=== PATIENT | female | born 1980 | race African-American/Black ===

== ENCOUNTER 2023-08-04 08:29 | Emergency (ER) | payer MEDICAID, OTHER ==
[~2023-08-04] VITALS: Ht 162.6 cm; Wt 97.0 kg
[2023-08-04 08:34] VITALS: BP 115/85; PULSE 82; RESP 16; TEMP 98.7; O2SAT 97
[2023-08-04 10:19] LABS: HEMATOCRIT. 38.1 % (36.0-48.0); HEMOGLOBIN. 12.4 g/dL (12.0-16.0); MEAN CORPUSCULAR HEMOGLOBIN 25.6 pg (28.0-32.0); MEAN CORPUSCULAR HGB CONC 32.6 g/dL (31.0-37.0); MEAN CORPUSCULAR VOLUME 78.7 fL (81.0-99.0); PLATELET 257 x1000/uL (130-400); RED BLOOD CELL COUNT 4.84 mill/uL (4.2-5.4); RED CELL DISTRIBUTION WIDTH 14.3 % (11.6-14.6); WHITE BLOOD COUNT 10.4 x1000/uL (4.5-11.0)
[2023-08-04 10:24] LABS: DIFFERENTIAL COMMENT 1
[2023-08-04 10:25] LABS: HCG SCREEN NEGATIVE
[2023-08-04 10:30] LABS: ALANINE AMINOTRANSFERASE 43 IU/L (10-49); ALBUMIN 4.2 g/dL (3.2-4.8); ASPARTATE AMINOTRANSFERASE 80 IU/L (<34); BILIRUBIN TOTAL 0.6 mg/dL (0.1-1.0); CALCIUM 8.8 mg/dL (8.7-10.4); CARBON DIOXIDE 28 mEq/L (21-32); CHLORIDE 108 mEq/L (98-107); CREATININE 1.1 mg/dL (0.6-1.0); GLUCOSE 103 mg/dL (70-105); POTASSIUM 4.1 mEq/L (3.5-5.1); PROTEIN TOTAL 7.1 g/dL (6.0-8.3); SODIUM 136 mEq/L (136-145); UREA NITROGEN BLOOD 12 mg/dL (9-23)
[2023-08-04 10:52] LABS: TROPONIN I HIGH SENSITIVITY < 4 ng/L (3.0-34)
[2023-08-04 10:57] LABS: PLATELET ESTIMATE NORMAL
[2023-08-04 12:18] LABS: TROPONIN I HIGH SENSITIVITY < 4 ng/L (3.0-34)
== END 2023-08-04 14:42 | disposition home or self-care (01) ==
LOC: ER 08:29
DX: R07.89 Other chest pain (principal); J45.909 Unspecified asthma, uncomplicated
CPT/HCPCS: 36415; 71045; 80053; 84484; 84703; 85025; 93005; 99285